=== PATIENT | male | born 1940 | race Caucasian/White ===

== ENCOUNTER 2017-01-11 15:00 | Inpatient (IN) | payer OTHER ==
[~2017-01-11] VITALS: Ht 177.8 cm; Wt 65.0 kg
--- NOTE | ~2017-01-11 | P ---
[facility] [place] [address] PROCEDURE REPORT Name: AMITA MCDUFFIE Room #: 203-P [facility] IN M.R.#: [id number] Admission: 01/11/17 Attend Phys: Tavo Kelly MD, Discharge: 01/13/17 Date of : 44 Report #: [id number] THIS REPORT FOR: //name// CC: Tavo Kelly MD [facility] Ivan Main MD DATE OF SERVICE: 01/13/2017 PROCEDURE: Diagnostic colonoscopy. The patient of Dr. Tavo Kelly, Dr. Ivan Main. INDICATION FOR PROCEDURE: The patient has melena of undetermined etiology. The patient has been on Xarelto until this past Wednesday on 01/11/2017. His creatinine is 1.7, so the Xarelto is still in his system because it takes much longer to clear Xarelto whenever creatinines are elevated, so colonoscopy is being performed today to evaluate for source of melena. Informed consent for this procedure was obtained prior to the administration of any medication. The risks of the procedure, which include bleeding, perforation, infection, complications of sedation and the possibility I could miss something have been explained to the patient and he has indicated his consent by signing. DESCRIPTION OF PROCEDURE: Propofol was slowly titrated before and during this procedure for the patient's comfort by the Anesthesia Service. [employer] colonoscope was introduced through the anal sphincter and advanced under direct visualization to the terminal ileum. Findings were noted on withdrawal of the scope. The terminal ileal mucosa appeared normal. Cecum: Normal mucosa. Ascending colon: A few uncomplicated diverticula noted in the ascending colon, they were nonbleeding. Hepatic flexure: Normal mucosa. Transverse colon: A few uncomplicated diverticula were noted, no bleeding in the transverse colon or anywhere in the colon for that matter. Splenic flexure: Normal mucosa. Descending colon: A few uncomplicated diverticula were noted. Sigmoid colon: Multiple uncomplicated diverticula were noted. At 20 cm in the distal sigmoid colon, there was a 1.5 cm pedunculated polyp, was wide based, it was nonbleeding and was not the source of his melena. It was left in situ because of the high levels of Xarelto that I presume were still present in his system and the increased risk of bleeding because of this if a polypectomy were performed. Rectum: There were a few small, maybe 4-5 mm, polyps that were flat in the rectum. They were left in situ as we will be coming back to remove the larger polyp at a later date any way. Retroflex view does reveal the presence of some internal hemorrhoids that were nonbleeding and would not be the source of melena. Scope was withdrawn. The patient went to the recovery room in [address] [address] PROCEDURE REPORT Name: AMITA MCDUFFIE Room #: 203-P [facility] IN M.R.#: [id number] Admission: 01/11/17 Attend Phys: Tavo Kelly MD, Discharge: 01/13/17 Date of : 44 Report #: [id number] condition. He tolerated the procedure well. IMPRESSION: 1. Pancolonic uncomplicated diverticulosis, nonbleeding. 2. A 1.5 cm pedunculated polyp with a wide base at 20 cm in the distal sigmoid colon, left in situ, not removed because of the presence of Xarelto. 3. A few flat polyps in the rectum were left in situ as well. These can be removed at the same time that the polyp at 20 cm is removed when he has been off Xarelto for a longer period of time. 4. Internal hemorrhoids, nonbleeding. My recommendations are for him to come back sometime within the next month. He should have a flexible sigmoidoscopy done that will require just a tap water enema that clear out his colon and then we can do the flexible sigmoidoscopy after he has been off Xarelto for a week and take the polyps out without as much of a risk of having a bleed. Thank you very much once again for allowing me to participate in his care. Dr. Kelly, Dr. 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 <ELECTRONICALLY SIGNED> By: Tatiana Flores DO 01/14/17 0551 [id number] Tatiana Flores DO /nt
--- NOTE | ~2017-01-11 | P ---
[facility] [place] [address] PROCEDURE REPORT Name: AMITA MCDUFFIE Room #: 203-P [facility] IN M.R.#: [id number] Admission: 01/11/17 Attend Phys: Tavo Kelly MD, Discharge: 01/13/17 Date of : 44 Report #: [id number] THIS REPORT FOR: //name// CC: Tavo Kelly MD [facility] Ivan Main MD PROCEDURE: Diagnostic EGD. He is a patient of Dr. Ivan Main [facility] in [place], [place], and Dr. Tavo Kelly. INDICATION FOR PROCEDURE: This patient has a history of melena. He was on Xarelto until Wednesday. He has a creatinine of 1.7, so the Xarelto still has a good presence in his body. EGD and colonoscopy are being performed to evaluate the etiology of the melena and the hemoglobin of 7 on admission. Informed consent for this procedure was obtained prior to the administration of any medication. The risks of the procedure, which include bleeding, perforation, infection, complications of sedation and the possibility I could miss something have been explained to the patient and he has indicated his consent by signing. DESCRIPTION OF PROCEDURE: Propofol was slowly titrated before and during this procedure for the patient's comfort by the Anesthesia Service. The [employer] upper videoscope was introduced through the upper esophageal sphincter and advanced under direct visualization to the descending duodenum. Findings were noted on withdrawal of the scope. The duodenal mucosa appeared normal throughout its entirety. Pylorus, normal mucosa. Antrum, erythema and erosions were noted in the antrum of the stomach. These were nonbleeding at the present time, but were probably the source of his melena. Body, normal mucosa. Cardia and fundus, normal mucosa. Retroflex view did not reveal any abnormalities. The scope was withdrawn to the esophagus. The Z-line was appropriately located at the top of gastric folds and appears normal. The esophageal mucosa appears normal throughout its entirety. The scope was withdrawn. The patient was turned for colonoscopy. 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 Recommendations are for him to be on proton pump inhibitors and will proceed with colonoscopy at this time. Thank you very much once again for allowing me to participate in his care. <ELECTRONICALLY SIGNED> By: Tatiana Flores DO 01/14/17 0551 [id number] Tatiana Flores DO /nt
[~2017-01-11 15:00] MED LIST: ACETAMINOPHEN-1 EAC1 PO; ADULT LOW DOSE81 MG PO; AZITHROMYCIN 2250 MG; BUDESONIDE EC3 MG PO; CARVEDILOL25 MG PO; CARVEDILOL3.125 MG PO; COUMADIN 5 MG TA5 M1 PO; FLEXERIL PO; FUROSEMIDE 40 M40 MG PO; HYDROCODON-ACE1 EAC7 PO; K-DUR 20 MEQ T20 MEQ PO; KEFLEX250 MG/5 M PO; LEVOTHYROXIN0.025 M1 PO; LEVOTHYROXINE0.05 MG PO; LISINOPRIL5 MG PO; METOPROLOL SUCC25 M1 PO; MEVACOR40 MG PO; MOM PO; NAPROSYN500 MG PO; NITROQUICK0.4 MG; OXYCODONE-APAP1 EAC4 PO; PACERONE 200 M200 M1 PO; POTASSIUM20 PO; PRAVACHOL40 MG PO; PRILOSEC 20 MG20 MG PO; QUINAPRIL 20 MG20 MG PO; TIZANIDINE HCL4 M1 PO; TYLENOL W/CODEI1 TA2 PO; UNICOMPLEX M TA1 TA1 PO; XARELTO15 MG PO; ZANTAC 150MG T150 M1 PO
[2017-01-11 16:45] VITALS: BP 95/33
[2017-01-11 19:28] VITALS: BP 115/52
[2017-01-11 20:21] VITALS: BP 103/51; BP 103/52
[2017-01-12] VITALS (7 sets, daily range): BP systolic 96–104; BP diastolic 40–57
[2017-01-12 04:08] LABS: HEMATOCRIT 26.2 % (42.0-52.0); HEMOGLOBIN 8.7 gm/dL (14.0-18.0); MCH 30.5 pg (26.0-34.0); MCHC 33.3 g/dL (28.0-37.0); MCV 91.8 fL (80.0-100.0); RBC 2.85 mil/uL (4.50-6.00); RDW 16.5 % (10.5-14.5); WBC 5.1 thou/uL (4.0-11.0)
[2017-01-12 15:16] LABS: ALBUMIN 2.8 g/dL (3.4-5.0); CALCIUM 8.7 mg/dL (8.5-10.1); CREATININE 1.8 mg/dL (0.7-1.3); TOTAL BILIRUBIN 0.7 mg/dL (<0.1-1.0); TOTAL PROTEIN 6.6 g/dL (6.4-8.2)
[2017-01-12 15:47] LABS: POTASSIUM 2.8 mmol/L (3.5-5.1)
[2017-01-13 04:13] VITALS: BP 111/47
[2017-01-13 04:28] LABS: HEMATOCRIT 27.9 % (42.0-52.0); HEMOGLOBIN 9.3 gm/dL (14.0-18.0); MCH 30.6 pg (26.0-34.0); MCHC 33.5 g/dL (28.0-37.0); MCV 91.3 fL (80.0-100.0); RBC 3.06 mil/uL (4.50-6.00); RDW 16.4 % (10.5-14.5); WBC 5.4 thou/uL (4.0-11.0)
[2017-01-13 04:33] LABS: CALCIUM 8.9 mg/dL (8.5-10.1); CREATININE 1.6 mg/dL (0.7-1.3)
[2017-01-13 04:45] LABS: POTASSIUM 2.6 mmol/L (3.5-5.1)
[2017-01-13 07:19] VITALS: BP 102/52
[2017-01-13 12:05] LABS: CALCIUM 9.1 mg/dL (8.5-10.1); CREATININE 1.7 mg/dL (0.7-1.3); POTASSIUM 3.5 mmol/L (3.5-5.1)
[2017-01-13] MEDS ORDERED: PROTONIX40 M1 PO (14:56)
[2017-01-13] MEDS ORDERED: POTASSIUM20 PO (14:56)
[2017-01-13 15:58] VITALS: BP 102/52
[2017-01-13 16:00] VITALS: BP 102/52
== END 2017-01-13 16:17 | disposition home or self-care (01) | DRG 314 ==
LOC: 2N 15:00
PROVIDERS: Internal Medicine Cardiovascular Disease; Nurse Practitioner; Nurse Practitioner Adult Health
PROC: 30233N1 Transfusion of Nonautologous Red Blood Cells into Peripheral Vein, Percutaneous Approach (ICD-10-PCS; principal; 2017-01-11)
PROC: 0DJ08ZZ Inspection of Upper Intestinal Tract, Via Natural or Artificial Opening Endoscopic (ICD-10-PCS; 2017-01-13)
PROC: 0DJD8ZZ Inspection of Lower Intestinal Tract, Via Natural or Artificial Opening Endoscopic (ICD-10-PCS; 2017-01-13)
DX: I95.9 Hypotension, unspecified (principal); K29.61 Other gastritis with bleeding; K64.8 Other hemorrhoids; D64.9 Anemia, unspecified; I25.10 Atherosclerotic heart disease of native coronary artery without angina pectoris; I25.5 Ischemic cardiomyopathy; E87.6 Hypokalemia; E78.00 Pure hypercholesterolemia, unspecified; I10 Essential (primary) hypertension; F17.210 Nicotine dependence, cigarettes, uncomplicated; I48.2 Chronic atrial fibrillation; Z79.01 Long term (current) use of anticoagulants; Z79.899 Other long term (current) drug therapy; Z95.1 Presence of aortocoronary bypass graft; Z79.82 Long term (current) use of aspirin; Z82.49 Family history of ischemic heart disease and other diseases of the circulatory system
CPT/HCPCS: 10081; 62110; 62900; 70005

== ENCOUNTER 2017-06-05 19:00 | Emergency (ER) | payer OTHER ==
[~2017-06-05] VITALS: Ht 177.8 cm; Wt 63.5 kg
[~2017-06-05 19:00] MED LIST changes: +PROTONIX40 M1 PO
[2017-06-05 21:40] VITALS: BP 109/64
== END 2017-06-05 21:42 | disposition home or self-care (01) ==
LOC: ER 19:00
DX: R04.0 Epistaxis (principal); I11.0 Hypertensive heart disease with heart failure; I50.9 Heart failure, unspecified; E78.5 Hyperlipidemia, unspecified; M19.90 Unspecified osteoarthritis, unspecified site; J44.9 Chronic obstructive pulmonary disease, unspecified; I48.91 Unspecified atrial fibrillation; Z95.811 Presence of heart assist device; I25.2 Old myocardial infarction; F17.210 Nicotine dependence, cigarettes, uncomplicated